=== PATIENT | male | born 1995 | race Caucasian/White ===

== ENCOUNTER 2024-11-16 18:22 | Emergency (ER) | payer OTHER ==
[~2024-11-16] VITALS: Ht 167.6 cm; Wt 61.2 kg
[2024-11-16 19:04] LABS: KETONE, URINE AUTO RFX NEGATIVE (NEGATIVE); LEUKOCYTE ESTERASE UR AUTO RFX NEGATIVE (NEGATIVE); MUCUS, URINE RFX SMALL (NEGATIVE); NITRITE, URINE AUTO RFX NEGATIVE (NEGATIVE); RBC, URINE AUTO RFX 0 /HPF (0-3); SQUAM EPITHELIAL CELL UR AURFX 0 /HPF (0-6); WBC, URINE AUTO RFX 1 /HPF (0-3)
[2024-11-16 20:05] LABS: Trichomonas vaginalis (AMP) NOT DETECTED (NEGATIVE)
[2024-11-16 20:29] LABS: GC DNA AMPLIFICATION NEGATIVE (NEGATIVE)
[2024-11-16 22:37] VITALS: BP 110/69; TEMP 96.3; O2SAT 99
== END 2024-11-16 22:40 | disposition home or self-care (01) ==
LOC: M ED 18:22
DX: A63.0 Anogenital (venereal) warts (principal)

== ENCOUNTER 2025-03-07 12:45 | Emergency (ER) | payer OTHER ==
[~2025-03-07] VITALS: Ht 165.1 cm; Wt 62.0 kg
[2025-03-07] MEDS ORDERED: VENL37.598 PO (13:05)
[2025-03-07 13:29] LABS: PLATELET COUNT, AUTOMATED 236 10^3/uL (150-450)
[2025-03-07 13:55] LABS: AMPHETAMINES LEVEL URINE NEGATIVE (NEGATIVE); BARBITURATES URINE NEGATIVE (NEGATIVE); BENZODIAZEPINES URINE NEGATIVE (NEGATIVE)
[2025-03-07 13:56] LABS: CANNABINOIDS URINE NEGATIVE (NEGATIVE); COCAINE METABOLITE URINE NEGATIVE (NEGATIVE); METHADONE URINE NEGATIVE (NEGATIVE); OPIATES URINE NEGATIVE (NEGATIVE); PHENCYCLIDINE URINE NEGATIVE (NEGATIVE)
[2025-03-07 14:15] LABS: ETHYL ALCOHOL (ETHANOL) < 0.003 % (0.000-0.010)
[2025-03-07 14:17] LABS: ALT/SGPT < 9 U/L (7.0-40); AST/SGOT 11 U/L (<34); CALCIUM LEVEL 9.0 MG/DL (8.5-10.1); CARBON DIOXIDE LEVEL 25 MMOL/L (20-31); CHLORIDE LEVEL 101 MMOL/L (98-107); CREATININE FOR GFR 1.00 MG/DL (0.70-1.30); GLOMERULAR FILTRATION RATE > 90.0 (>60); POTASSIUM SERUM 4.2 MMOL/L (3.5-5.1); SALICYLATE LEVEL < 3.0 MG/DL (<30); SODIUM LEVEL 137 MMOL/L (136-145)
[2025-03-07 15:10] VITALS: BP 135/75; TEMP 98.3; O2SAT 100
== END 2025-03-07 15:30 | disposition home or self-care (01) ==
LOC: M ED 12:45 → EDBD 12:45 → M ED 15:30
DX: F41.9 Anxiety disorder, unspecified (principal); F17.210 Nicotine dependence, cigarettes, uncomplicated; Z79.899 Other long term (current) drug therapy